=== PATIENT | male | born 1960 | race Caucasian/White ===

== ENCOUNTER 2018-01-26 10:36 | Emergency (ER) | payer BC ==
[2018-01-26 11:18] VITALS: BP 120/67
--- NOTE | 2018-01-26 11:38 | UC ---
Ear Complaint HPI - HPI Summary HPI Summary: 57 yo male presents with lumps behind ears. He tells me that yesterday he felt pain behind his left ear. When he went to feel the region he felt a large bump. He compared it to the right side and felt a similar bump there. Has mild associated headache, but otherwise has been feeling well. Denies fever, chills, night sweats, weight loss/gain, vision changes, injury, SOB, or chest pain. He currently does not have a PCP as his former PCP retired about 2 years ago. - History of Current Complaint Chief Complaint: UCSkin Stated Complaint: LUMPS BEHIND BOTH EARS Time Seen by Provider: 01/26/18 11:38 Hx Obtained From: Patient Onset/Duration: Sudden Onset Severity Initially: Moderate Severity Currently: Moderate Pain Intensity: 5 Pain Scale Used: 0-10 Numeric - Allergies/Home Medications Allergies/Adverse Reactions: Allergies Allergy/AdvReac Type Severity Reaction Status Date / Time Penicillins Allergy Hives Verified 01/26/18 11:19 Home Medications: Home Medications NK [No Home Medications Reported] 01/26/18 [History Confirmed 01/26/18] PMH/Surg Hx/FS Hx/Imm Hx - Additional Past Medical History Additional PMH: None Previously Healthy: Yes - Surgical History Surgical History: Yes Surgery Procedure, Year, and Place: hernia - Family History Known Family History: Positive: None - Social History Occupation: Employed Full-time Lives: With Family Alcohol Use: Occasionally Substance Use Type: None Smoking Status (MU): Heavy Every Day Tobacco Smoker Review of Systems Constitutional: Other - Bump behind b/l ears Skin: Negative Eyes: Negative ENT: Negative Respiratory: Negative Cardiovascular: Negative Gastrointestinal: Negative Neurovascular: Negative Musculoskeletal: Negative Neurological: Negative Psychological: Negative All Other Systems Reviewed And Are Negative: Yes Physical Exam - Summary Physical Exam Summary: GENERAL: NAD. WDWN. No pain distress. SKIN: No rashes, sores, or open wounds. HEENT: Head: AT/NC Eyes: PERRLA. EOM intact. Conjunctiva clear without inflammation or discharge. Ears: Hearing grossly normal. TMs intact, no bulging, erythema, or edema. Nose: Nasal mucosa pink and moist. NTTP maxillary and frontal sinus. Throat: Posterior oropharynx without exudates, erythema, or tonsillar enlargement. Uvula midline. NECK: Supple. Posterior auricular and occipital LAD with moderate TTP. Left with 1.5cm nodule/node and right with 1.0cm node. CHEST: CTAB. No r/r/w. No accessory muscle use. Breathing comfortably and in no distress. CV: RRR. Without m/r/g. Pulses intact. Brisk cap refill. MSK: FROM in B/L UEs and LEs with symmetric strength. NEURO: A&Ox3. 3 word recall, remote, recent memory, ability to follow 2-step directions, and attention intact. CN II XII grossly intact. Objakr-yp-mumt are intact. Gait with normal base. Romberg: maintains balance, no pronator drift. Normal speech. No facial drooping. PSYCH: Age appropriate behavior. Triage Information Reviewed: Yes Vital Signs: Initial Vital Signs Temp 98.7 F 01/26/18 11:15 Pulse 81 01/26/18 11:15 Resp 18 01/26/18 11:15 BP 120/67 01/26/18 11:15 Pulse Ox 98 01/26/18 11:15 Vital Signs Reviewed: Yes Ear Complaint Course/Dx - Course Course Of Treatment: CT: IMPRESSION: PATCHY DECREASED PERIVENTRICULAR AND SUBCORTICAL WHITE MATTER CHANGE LIKELY. 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 CONSIDER FOLLOW-UP MR IMAGING. Occipital LAD with uncertain etiology. Draw for CBC, CMP , and HIV. Discussed with pt that this could be related to a viral illness and to monitor the area for any changing symptoms. Strongly advised to establish with a new PCP as soon as possible for f/u to CT results and LAD recheck. - Differential Dx/Diagnosis Provider Diagnoses: B/L occipital LAD Discharge - Sign-Out/Discharge Documenting (check all that apply): Patient Departure - Discharge Plan Condition: Stable Disposition: HOME Patient Education Materials: Lymphadenopathy (ED) Referrals: No Primary Care Phys,NOPCP [Primary Care Provider] - [facility] [place] [facility] REFERRAL [Outside] - As Soon As Possible Additional Instructions: If you develop a fever, shortness of breath, chest pain, new or worsening symptoms - please call your PCP or go to the ED. 1) Please schedule an appointment with a primary doctor as soon as possible - Billing Disposition and Condition Condition: STABLE Disposition: Home
--- NOTE | 2018-01-26 12:17 | RAD ---
INDICATION: Headaches. Dizziness COMPARISON: None TECHNIQUE: Noncontrast axial source images were acquired from the skull base to the vertex. FINDINGS: Ventricles/sulci: The ventricles and cisterns are normal in size and configuration for age. Brain parenchyma: There is patchy decreased attenuation in the periventricular and subcortical white matter. This suggests chronic microvascular ischemic change. Consider follow-up MR imaging for further evaluation. There is no acute appearing focal parenchymal finding, evidence of intracranial mass, or intracranial mass effect. Intracranial hemorrhage:None. Extra-axial spaces: There are no abnormal extra axial fluid collections or evidence of extra-axial mass. Calvarium: There is no calvarial fracture or other calvarial abnormality. Scalp: There is no evidence of scalp or extracalvarial soft tissue abnormality. Paranasal sinuses/mastoid: The paranasal sinuses and mastoid air cells are clear. Other: There are bilateral basal ganglia calcifications. IMPRESSION: PATCHY DECREASED PERIVENTRICULAR AND SUBCORTICAL WHITE MATTER CHANGE LIKELY RELATED TO MICROANGIOPATHY. CONSIDER FOLLOW-UP MR IMAGING.
[2018-01-26 18:51] LABS: ABS Basophils 0.1 10^3/ul (0-0.2); ABS Eosinophils 0.1 10^3/ul (0-0.6); ABS Lymphocytes 0.8 10^3/ul (1.0-4.8); ABS Monocytes 0.9 10^3/ul (0-0.8); ABS Neutrophils 4.1 10^3/ul (1.5-7.7); ABS Nucleated RBC 0 10^3/ul; Eosinophil % 2.1 % (0-6); Hematocrit 44 % (42-52); Hemoglobin 15.4 g/dl (14.0-18.0); Mean Corpuscular HGB Conc 35 g/dl (31-36); Mean Corpuscular Hemoglobin 32 pg (27-31); Mean Corpuscular Volume 93 fL (80-94); Mean Platelet Volume 8.9 um3 (7.4-10.4); Nucleated Red Blood Cells % 0.5; Platelet Count 274 10^3/ul (150-450); Red Blood Count 4.76 10^6/ul (4.00-5.40); Red Cell Distribution Width 14 % (10.5-15)
[2018-01-26 19:43] LABS: EGFR Non-African American 99.3 (>60)
== END 2018-01-26 13:15 | disposition home or self-care (01) ==
LOC: UCEAST 10:36
DX: R59.0 Localized enlarged lymph nodes (principal); Z88.0 Allergy status to penicillin; F17.200 Nicotine dependence, unspecified, uncomplicated
CPT/HCPCS: 36415; 70450; 80053; 85025; 86703; 99211; G0463

== ENCOUNTER → 2018-08-23 06:07 | Emergency (ER) | payer BC ==
[~2018-08-23 06:07] MED LIST: Iohexol 300* (CONTRAST) 10 ML SDV IV ONE; Morphine VIAL* 4 MG/ML VIAL (1 ml vial) IV ONE; Morphine VIAL* 4 MG/ML VIAL (1 ml vial) ONE; NS 0.9% 1000 ML** 1,000 ML IV ONE; Ondansetron INJ* 2 MG/ML VIAL IV ONE
[2018-08-23 07:11] LABS: ABS Basophils 0.1 10^3/ul (0-0.2); ABS Eosinophils 0 10^3/ul (0-0.6); ABS Lymphocytes 0.6 10^3/ul (1.0-4.8); ABS Monocytes 0.5 10^3/ul (0-0.8); ABS Neutrophils 15.2 10^3/ul (1.5-7.7); ABS Nucleated RBC 0 10^3/ul; Eosinophil % 0 %; Hematocrit 44 % (42-52); Hemoglobin 14.9 g/dl (14.0-18.0); Lymphocyte % 3.7 %; Mean Corpuscular HGB Conc 34 g/dl (31-36); Mean Corpuscular Hemoglobin 31 pg (27-31); Mean Corpuscular Volume 91 fL (80-94); Mean Platelet Volume 7.4 fL (7.4-10.4); Nucleated Red Blood Cells % 0; Platelet Count 252 10^3/ul (150-450); Red Blood Count 4.85 10^6/ul (4.00-5.40); Red Cell Distribution Width 14 % (10.5-15); White Blood Count 16.4 10^3/ul (3.5-10.8)
--- NOTE | 2018-08-23 07:19 | ED ---
Abdominal Pain/Male - HPI Summary HPI Summary: Patient is a 57-year-old male presenting to the ED with abdominal cramping since this morning. He states this is severe. He also had one episode of emesis this morning without hematemesis. He endorses pain to the R flank, however states the worsening pain is to the abdomen - bilateral but worse to the RLQ. Denies fevers, sweats or chills. He is otherwise healthy, takes no medications and denies any abd surgeries or recent illness. No history of kidney stones. Denies any urinary symptoms including hematuria. at bedside. states he is not a complainer and never c/o pain and he continues to endorse "severe pain." - History of Current Complaint Chief Complaint: EDFlankSukhwinderin Stated Complaint: "VOMITING, IS IN PAIN" PER Time Seen by Provider: 08/23/18 06:28 Hx Obtained From: Patient Onset/Duration: Sudden Onset Timing: Constant Severity Initially: Severe Severity Currently: Severe Pain Intensity: 10 Pain Scale Used: 0-10 Numeric Location: Other - RLQ (but began as R flank pain) Radiates: No Aggravating Factor(s): Nothing Alleviating Factor(s): Nothing Associated Signs And Symptoms: Positive: Negative - Risk Factors Testicular Torsion: Negative Cardiac Risk Factors: Negative - Allergies/Home Medications Allergies/Adverse Reactions: Allergies Allergy/AdvReac Type Severity Reaction Status Date / Time Penicillins Allergy Hives Verified 08/23/18 06:14 PMH/Surg Hx/FS Hx/Imm Hx Previously Healthy: Yes - Surgical History Surgery Procedure, Year, and Place: hernia - Immunization History Hx Pertussis Vaccination: No Immunizations Up to Date: Yes Infectious Disease History: No Infectious Disease History: Denies: Traveled Outside the [place] in Last 30 Days - Family History Known Family History: Positive: None - Social History Occupation: Employed Full-time Lives: With Family Alcohol Use: Occasionally Hx Substance Use: No Substance Use Type: Reports: None Hx Tobacco Use: Yes Smoking Status (MU): Heavy Every Day Tobacco Smoker Review of Systems Constitutional: Negative Negative: Fever, Chills, Fatigue, Skin Diaphoresis Negative: Epistaxis, Dental Pain Negative: Palpitations, Chest Pain Negative: Shortness Of Breath, Cough Positive: Abdominal Pain - RLQ pain without flank pain at this time, Vomiting, Nausea Negative: burning, dysuria, discharge, flank pain, hematuria, incontinence, urgency Negative: Arthralgia, Myalgia Negative: Rash, Bruising Negative: Headache All Other Systems Reviewed And Are Negative: Yes Physical Exam Triage Information Reviewed: Yes Vital Signs On Initial Exam: Initial Vitals Temp Pulse Resp BP Pulse Ox 97.5 F 69 16 139/81 98 08/23/18 06:10 08/23/18 06:10 08/23/18 06:10 08/23/18 06:10 08/23/18 06:10 Vital Signs Reviewed: Yes Appearance: Positive: Well-Appearing, Well-Nourished Skin: Positive: Warm, Skin Color Reflects Adequate Perfusion Eyes: Positive: EOMI, TOM, Conjunctiva Clear Respiratory/Lung Sounds: Positive: Clear to Auscultation, Breath Sounds Present Cardiovascular: Positive: RRR, Pulses are Symmetrical in both Upper and Lower Extremities Abdomen Description: Positive: Other: - tenderness to the RLQ on light palpation , no CVA tenderness bilaterall - no pain to the LLQ or RUQ on exam. Bowel Sounds: Positive: Present Musculoskeletal: Positive: Normal, Strength/ROM Intact Neurological: Positive: Sensory/Motor Intact, Alert, Oriented to Person Place, Time, Speech Normal Psychiatric: Positive: Affect/Mood Appropriate Diagnostics - Vital Signs Vital Signs Temp Pulse Resp BP Pulse Ox 08/23/18 06:46 20 08/23/18 06:10 97.5 F 69 16 139/81 98 - Laboratory Lab Results: Lab Results 08/23/18 Range/Units 07:04 WBC 16.4 H (3.5-10.8) 10^3/ul RBC 4.85 (4.00-5.40) 10^6/ul Hgb 14.9 (14.0-18.0) g/dl Hct 44 (42-52) % MCV 91 (80-94) fL MCH 31 (27-31) pg MCHC 34 (31-36) g/dl RDW 14 (10.5-15) % Plt Count 252 (150-450) 10^3/ul MPV 7.4 (7.4-10.4) fL Neut % (Auto) 92.9 % Lymph % (Auto) 3.7 % Irion % (Auto) 3.1 % Eos % (Auto) 0 % Baso % (Auto) 0.3 % Absolute Neuts (auto) 15.2 H (1.5-7.7) 10^3/ul Absolute Lymphs (auto) 0.6 L (1.0-4.8) 10^3/ul Absolute Monos (auto) 0.5 (0-0.8) 10^3/ul Absolute Eos (auto) 0 (0-0.6) 10^3/ul Absolute Basos (auto) 0.1 (0-0.2) 10^3/ul Absolute Nucleated RBC 0 10^3/ul Nucleated RBC % 0 Result Diagrams: 08/23/18 07:04 08/23/18 07:04 Lab Statement: Any lab studies that have been ordered have been reviewed, and results considered in the medical decision making process. Abdominal Pain Male Course/Dx - Course Course Of Treatment: Physical examination, patient appears ill, however nondiaphoretic. On physical examination, he has no CVA tenderness bilaterally. , Mild tenderness throughout the abdomen, however he is exquisitely tender in the RLQ. One episode nausea, vomiting. Continues to have nausea. He denies any urinary symptoms including obstructive symptoms. Labs are obtained which show a leukocytosis of 16.1. right hydronephrosis and hydroureter with a 3 mm calculi in the right side of the urinary bladder which may represent a calculus in the right ureterovesical junction or recently passed calculus. Discussed treatment options with patient. Patient states he is feeling improved, however with slight discomfort still. UA obtained and shows no UTI. - Diagnoses Differential Diagnosis/HQI/PQRI: Appendicitis, Bowel Obstruction, Constipation, Diverticulitis, Ureteral Stone, Urinary Tract Infection Provider Diagnoses: Kidney stone Discharge - Sign-Out/Discharge Documenting (check all that apply): Patient Departure Patient Received Moderate/Deep Sedation with Procedure: No - Discharge Plan Condition: Stable Disposition: HOME Prescriptions: oxyCODONE/Acetamin 10/325(NF) [Percocet 10/325 (NF)] 1 tab PO Q8H #9 tab MDD 3 Patient Education Materials: Kidney Stones (ED) Referrals: No Primary Care Phys,NOPCP [Primary Care Provider] - Additional Instructions: Drink plenty of fluids Oxycodone up to 3 times daily as needed for pain - Billing Disposition and Condition Condition: STABLE Disposition: Home
[2018-08-23 07:29] LABS: ALT 18 U/L (7-52); AST 18 U/L (13-39); Albumin 4.4 g/dL (3.2-5.2); Albumin/Globulin Ratio 1.8 (1-3); Alkaline Phosphatase 74 U/L (34-104); Anion Gap 7 mmol/L (2-11); Blood Urea Nitrogen 13 mg/dL (6-24); C Reactive Protein 2.41 mg/L (<8.01); CO2 Carbon Dioxide 24 mmol/L (22-32); Calcium 9.5 mg/dL (8.6-10.3); Chloride 107 mmol/L (101-111); EGFR Non-African American 70.2 (>60); Globulin 2.5 g/dL (2-4); Glucose 125 mg/dL (70-100); Magnesium 1.9 mg/dL (1.9-2.7); Potassium 4.4 mmol/L (3.5-5.0); Sodium 138 mmol/L (135-145); Total Protein 6.9 g/dL (6.4-8.9)
[2018-08-23 10:50] LABS: Urine Appearance Cloudy; Urine Bacteria Absent (Absent); Urine Bilirubin Negative (Negative); Urine Blood 3+ (Negative); Urine Glucose Negative (Negative); Urine Ketones Negative (Negative); Urine Nitrite Negative (Negative); Urine Protein 2+(100 mg/dL) (Negative); Urine Red Blood Cell 3+(>10/hpf) (Absent); Urine Specific Gravity 1.049 (1.010-1.030); Urine Urobilinogen Negative (Negative); Urine White Blood Cell Absent (Absent)
[2018-08-23 10:53] LABS: Urine Color Red
[2018-08-23 11:05] VITALS: BP 141/82
== END | disposition home or self-care (01) ==
LOC: ED 06:07
DX: N20.0 Calculus of kidney (principal); R10.31 Right lower quadrant pain; F17.210 Nicotine dependence, cigarettes, uncomplicated; Z88.0 Allergy status to penicillin
CPT/HCPCS: 36415; 74177; 80053; 81003; 81015; 83605; 83690; 83735; 85025; 86140; 96374; 96375; 99283; J2270; J2405; Q9967

== ENCOUNTER 2019-01-12 13:25 | Emergency (ER) | payer BC ==
[2019-01-12 13:36] VITALS: BP 137/76
--- NOTE | 2019-01-12 13:48 | UC ---
Skin Complaint HPI - History of Current Complaint Chief Complaint: UCSkin Time Seen by Provider: 01/12/19 13:46 Stated Complaint: SKIN COMPLAINT Pain Intensity: 3 - Allergy/Home Medications Allergies/Adverse Reactions: Allergies Allergy/AdvReac Type Severity Reaction Status Date / Time Penicillins Allergy Hives Verified 01/12/19 13:29 Home Medications: Home Medications NK [No Home Medications Reported] 01/12/19 [History Confirmed 01/12/19] PMH/Surg Hx/FS Hx/Imm Hx - Surgical History Surgical History: Yes Surgery Procedure, Year, and Place: hernia repair 2013 - Family History Known Family History: Positive: None - Social History Alcohol Use: None Substance Use Type: None Smoking Status (MU): Heavy Every Day Tobacco Smoker Amount Used/How Often: 1/2-3/4 PPD Physical Exam Vital Signs: Initial Vital Signs Temp 99.2 F 01/12/19 13:29 Pulse 77 01/12/19 13:29 Resp 18 01/12/19 13:29 BP 137/76 01/12/19 13:29 Pulse Ox 99 01/12/19 13:29 Discharge - Discharge Plan Referrals: No Primary Care Phys,NOPCP [Primary Care Provider] -
--- NOTE | 2019-01-12 14:06 | UC ---
Skin Complaint HPI - HPI Summary HPI Summary: 58-year-old male presents for redness and swelling to his right hand. States 2 days ago he sustained a small abrasion to the back of his hand when he accidentally hit on a screw while fixing the motor is sailboat. States yesterday he noticed some redness around the wound but this morning the redness and increased and now involves the entire back of his hand down to his wrist. Full range of motion to all of his fingers. Right hand dominant. Denies fever, chills, purulent drainage, numbness, or tingling. - History of Current Complaint Chief Complaint: UCSkin Time Seen by Provider: 01/12/19 13:46 Stated Complaint: SKIN COMPLAINT Hx Obtained From: Patient Pain Intensity: 3 - Allergy/Home Medications Allergies/Adverse Reactions: Allergies Allergy/AdvReac Type Severity Reaction Status Date / Time Penicillins Allergy Hives Verified 01/12/19 13:29 PMH/Surg Hx/FS Hx/Imm Hx Previously Healthy: Yes - Denies significant PMH - Surgical History Surgical History: Yes Surgery Procedure, Year, and Place: hernia repair 2013 - Family History Known Family History: Positive: None - Social History Occupation: Employed Full-time Lives: With Family Alcohol Use: None Substance Use Type: None Smoking Status (MU): Heavy Every Day Tobacco Smoker Amount Used/How Often: 1/2-3/4 PPD - Immunization History Most Recent Tetanus Shot: <5 years Review of Systems All Other Systems Reviewed And Are Negative: Yes Constitutional: Negative: Fever, Chills Skin: Positive: Other - See HPI Respiratory: Positive: Negative Cardiovascular: Positive: Negative Gastrointestinal: Positive: Negative Genitourinary: Positive: Negative Neurovascular: Negative: Decreased Sensation Musculoskeletal: Negative: Arthralgia, Decreased ROM Neurological: Positive: Negative Is Patient Immunocompromised?: No Physical Exam - Summary Physical Exam Summary: GENERAL APPEARANCE: Well developed, well nourished, alert and cooperative, and appears to be in no acute distress. CARDIAC: Normal S1 and S2. No S3, S4 or murmurs. Rhythm is regular. There is no peripheral edema, cyanosis or pallor. Extremities are warm and well perfused. Capillary refill is less than 2 seconds. Peripheral pulses intact. LUNGS: Clear to auscultation without rales, rhonchi, wheezing or diminished breath sounds. ABDOMEN: Positive bowel sounds. Soft, nondistended, nontender. No guarding or rebound. No masses or hepatosplenomegally. MUSKULOSKELETAL: ROM intact to all extremities. No joint erythema or tenderness. Normal muscular development. Normal gait. SKIN: Small superficial abrasion less than 1 cm in diameter to his dorsal right hand immediately inferior to the third MCP with erythema, mild edema, and increased warmth to the dorsal hand not involving the fingers. Full range of motion to all fingers. Circulation and sensation intact. Triage Information Reviewed: Yes Vital Signs: Initial Vital Signs Temp 99.2 F 01/12/19 13:29 Pulse 77 01/12/19 13:29 Resp 18 01/12/19 13:29 BP 137/76 01/12/19 13:29 Pulse Ox 99 01/12/19 13:29 Vital Signs Reviewed: Yes Images Hands: 1 - Superficial abrasion <1 cm in diameter 2 - Erythema, mild edema, and increased warmth Course/Dx - Course Course Of Treatment: 58-year-old male presents for redness and swelling to his right hand. States 2 days ago he sustained a small abrasion to the back of his hand when he accidentally hit on a screw while fixing the motor is sailboat. States yesterday he noticed some redness around the wound but this morning the redness and increased and now involves the entire back of his hand down to his wrist. Full range of motion to all of his fingers. Right hand dominant. Denies fever, chills, purulent drainage, numbness, or tingling. Afebrile. Vital signs stable. Patient had a small superficial abrasion less than 1 cm in diameter to his dorsal right hand immediately inferior to the third MCP with erythema, mild edema, and increased warmth to the dorsal hand not involving the fingers. Full range of motion to all fingers. Circulation and sensation intact. Patient is penicillin allergic therefore we will treat for a cellulitis with clindamycin 300 mg 3 times a day 7 days. He is to use pukn-dtp-llckwih analgesics as needed for pain. Patient was encouraged to return here in 2 days if symptoms were not improving. Anticipatory guidance and warning symptoms were reviewed with the patient. Verbalizes understanding and agrees with plan of care. - Differential Diagnoses - Skin Complaint Differential Diagnoses: Cellulitis - Diagnoses Provider Diagnosis: Cellulitis of right hand Discharge - Sign-Out/Discharge Documenting (check all that apply): Patient Departure All imaging exams completed and their final reports reviewed: No Studies - Discharge Plan Condition: Stable Disposition: HOME Prescriptions: Clindamycin HCl 300 mg PO TID 7 Days #21 capsule Patient Education Materials: Cellulitis (ED) Referrals: No Primary Care Phys,NOPCP [Primary Care Provider] - Additional Instructions: History of developed a infection of the skin cellulitis. We will start to on an antibiotic to treat for an infection. Start clindamycin 300 mg 1 capsule 3 times a day for 7 days. Take acetaminophen (Tylenol) or ibuprofen (Advil, Motrin) according directions as needed for pain. Be sure to keep the wound in the back near hand clean with a mild soap and water and keep covered with a bandage. Return here in 2 days if no improvement in your symptoms. Seek immediate medical attention in the emergency room if you develop fever greater than 100.5 F, the redness continues to spread, you have severe pain that is not managed with the pain medication, or any worsening of symptoms. - Billing Disposition and Condition Condition: STABLE Disposition: Home - Attestation Statements Provider Attestation: I was available for consult. This patient was seen by the DYLAN. The patient was not presented to, seen by, or examined by me. -Steve
== END 2019-01-12 14:10 | disposition home or self-care (01) ==
LOC: UCEAST 13:25
DX: L03.113 Cellulitis of right upper limb (principal); F17.210 Nicotine dependence, cigarettes, uncomplicated; Z88.0 Allergy status to penicillin
CPT/HCPCS: 99212; G0463